=== PATIENT | female | born 1975 | race Hispanic/Latino ===

== ENCOUNTER 2021-06-06 01:30 | Emergency (ER) | payer SELFPAY ==
[2021-06-06] MEDS ORDERED: methylPREDNISolone Sod Succ/PF 125 MG/2 ML VIAL ONE (01:55)
[2021-06-06] MEDS ORDERED: Magnesium 2 GM/50 ML BAG (IN WATER) ONE (01:55)
[2021-06-06] MEDS ORDERED: Albuterol Sulfate 2.5 mg/3 ml Neb ONE (02:53)
== END 2021-06-06 04:30 | disposition home or self-care (01) ==
LOC: ERS 01:30
DX: J45.901 Unspecified asthma with (acute) exacerbation (principal); Z79.51 Long term (current) use of inhaled steroids
CPT/HCPCS: 71045; 93005; 94640; 96365; 96375; J2930; J3475; J7611; J7620